=== PATIENT | male | born 1990 | race Asian ===

== ENCOUNTER 2019-04-01 23:49 | Emergency (ER) | payer BC ==
[~2019-04-01] VITALS: Ht 185.4 cm; Wt 97.5 kg
[2019-04-01 23:56] VITALS: Ht 185.4 cm; Wt 97.5 kg
[2019-04-02 01:05] VITALS: BP 141/89
== END 2019-04-02 01:05 | disposition home or self-care (01) ==
LOC: ED 23:49
DX: S02.2XXA Fracture of nasal bones, initial encounter for closed fracture (principal); W50.0XXA Accidental hit or strike by another person, initial encounter; Y93.89 Activity, other specified; Y92.89 Other specified places as the place of occurrence of the external cause; Y99.8 Other external cause status